=== PATIENT | female | born 1995 | race Two or more races ===

== ENCOUNTER 2024-11-22 09:52 | Emergency (ER) | payer SELFPAY ==
[~2024-11-22] VITALS: Ht 167.6 cm; Wt 91.3 kg
--- NOTE | 2024-11-22 10:49 | DVH ---
CLINICAL INFORMATION: 29 years old, Female; shortness of breath. TECHNIQUE: Frontal and lateral chest radiographs were obtained. COMPARISON: None FINDINGS: Lungs: Clear. Cardiac: Heart size is within normal limits. Pulmonary vasculature: Unremarkable Mediastinum/paulo: Within normal limits. Bones: No evidence of acute osseous abnormality. Other: No other significant finding. IMPRESSION: No evidence of acute disease in the chest.
[2024-11-22 11:18] VITALS: BP 140/77; PULSE 114; RESP 18; TEMP 98.4; O2SAT 96
[2024-11-22] MEDS ORDERED: AMOX500C2 PO (11:35)
--- NOTE | 2024-11-22 11:36 | ED.PDOC ---
History of Present Illness Chief Complaint: Cough Time Seen by MD: 10:30 Allergies: Coded Allergies: NO KNOWN ALLERGIES (Unverified , 11/22/24) Home Meds Active Scripts Amoxicillin Trihydrate (Amoxicillin) 500 Mg Cap, 1 CAP PO TID for 7 Days, #21 CAP Prov:SHAR HASTINGS MD 11/22/24 Mode of Arrival: Ambulatory Physical Exam General Appearance: Moderate Distress HEENT: Normal ENT Inspection, Pharynx Normal, TMs Normal Neck: Full Range of Motion, Non-Tender, Normal, Normal Inspection Respiratory: Chest Non-Tender, Lungs Clear, No Accessory Muscle Use, No Respiratory Distress, Normal Breath Sounds Cardiovascular: No Edema, No JVD, No Murmur, No Gallop, Normal Peripheral Pulses, Regular Rate/Rhythm Breast Exam: Deferred Gastrointestinal: No Organomegaly, Non Tender, No Pulsatile Mass, Normal Bowel Sounds, Soft Genitalia: Deferred Pelvic: Deferred Rectal: Deferred Extremities: No calf tenderness, Normal capillary refill, Normal inspection, Normal range of motion, Non-tender, No pedal edema Musculoskeletal : Apperance: Normal Neurologic: Alert, criminal intelligence analyst II-XII nml as Tested, No Motor Deficits, Normal Affect, Normal Mood, No Sensory Deficits Cerebellar Function: Normal Reflexes: Normal Skin: Dry, Normal Color, Warm Peripheral Pulses: 3+ Radial (R), 3+ Radial (L) Lymphatic: No Adenopathy Was a procedure done? Was a procedure done?: No Differential Dx Considerations may include: Bronchitis Electrolyte imbalance X-Ray, Labs, Meds, VS Vital Signs Date Time Temp Pulse Resp B/P (MAP) Pulse Ox O2 Delivery O2 Flow Rate FiO2 11/22/24 11:18 114 18 96 Room Air 11/22/24 11:18 98.4 114 18 140/77 (98) 96 98.4 11/22/24 10:18 18 96 Room Air* 0 21 11/22/24 10:18 98.4 114 18 140/77 (98) 96 11/22/24 10:09 91 Patient alert. Complaining of cough. Denies chest pain. Denies shortness a breath. Saturation pristine on room air. Respiratory rate within normal limits pain No leg swelling. On re-evaluation heart rate within normal limits pain Does not meet any criteria. Comfortable. X-ray reviewed does not show any acute process no right ventricular strain. Given prescription of amoxicillin antibiotic. Was told to follow up with her primary care physician. Was told to come back if there is any problem. Time of 1ST Reevaluation: 11:33 Reevaluation 1ST: Unchanged Patient Education/Counseling: Diagnosis, Treatment, Prognosis, Need For Follow Up Family Education/Counseling: No Family Present Departure 1 Departure Time of Disposition: 11:34 Impression: Primary Impression: Bronchitis Disposition: 01 HOME / SELF CARE / HOMELESS Condition: Good e-Prescriptions Amoxicillin Trihydrate (Amoxicillin) 500 Mg Cap 1 CAP PO TID for 7 Days, #21 CAP Prov: SHAR HASTINGS MD 11/22/24 Discharged With: Self Critical Care Note Critical Care Time?: No Stability Stability form required: No Heart Score Heart Score: Heart Score Response (Comments) Value History N/A 0 EKG N/A 0 Age N/A 0 Risk Factors N/A 0 Troponin N/A 0 Total 0 SHAR HASTINGS MD Nov 22, 2024 11:36
--- NOTE | 2024-11-23 12:41 | ECG ---
[facility] Test Date: 2024-11-22 Test Time: 10:04:00 Pat Name: CHATA HORAN Department: ER Room: Gender: F Appeals Specialist: VIC : 1995 Requested By: SHAR HASTINGS Order Number: [id number] Reading MD: Adis Chu Measurements Intervals [place] Rate: 91 P: 0 [place]: 0 QRS: 57 QRSD: 104 T: 38 QT: 343 QTc: 423 Interpretive Statements Atrial fibrillation Electronically Signed On 11-24-2024 13:10:09 PST by Adis Chu Please click the below link to view image of tracing.
== END 2024-11-22 11:32 | disposition home or self-care (01) ==
LOC: ER 09:52
DX: J40 Bronchitis, not specified as acute or chronic (principal); I48.91 Unspecified atrial fibrillation
CPT/HCPCS: 71046; 93005

== ENCOUNTER 2025-01-02 06:24 | Emergency (ER) | payer MEDICAID, OTHER ==
[~2025-01-02] VITALS: Ht 167.6 cm; Wt 93.9 kg
[~2025-01-02 06:24] MED LIST: AMOX500C2 PO
[2025-01-02 07:27] VITALS: BP 127/70; PULSE 82; RESP 20; TEMP 98.2; O2SAT 94
--- NOTE | 2025-01-02 08:11 | DVH ---
EXAMINATION: XY R RIB XRAY INDICATION: R rib pain COMPARISON: None TECHNIQUE: Frontal view of the chest and 2 views of the right ribs FINDINGS: No focal consolidation, pleural effusion or significant pneumothorax. Normal cardiomediastinal silhou ette. No displaced right rib fracture. IMPRESSION: No acute cardiopulmonary disease. No displaced right rib fracture.
[2025-01-02] MEDS ORDERED: LIDO5DIS21 TOP (08:28)
--- NOTE | 2025-01-02 08:31 | ED.PDOC ---
SOB-HPI HPI Comments This is a pleasant 29-year-old female with a recent diagnosis of URI and b ronchitis that presents with a chief complaint of atraumatic nonradiating right- sided rib pain x1 month. After patient was diagnosed with bronchitis she began to endorse a productive cough that then developed a unilateral right-sided rib pain that is usually aggravated with lateral movements. Has not taken medications for the symptoms listed above. Denies any shortness of breath on exertion. Denies chest pain. Denies fevers chills night sweats unintentional weight loss Denies persistent chest pain, shortness of breath, leg swelling Denies history of asthma nor any breathing conditions Denies history of pneumonia Denies recent international travel Chief Complaint: Rib Pain Time Seen by MD: 06:59 Reviewed notes: Nurses Notes, Medications, Allergies Information Source: Patient Mode of Arrival: Ambulatory All Other Systems: Reviewed and Negative (per hpi) Physical Exam General Appearance: No Apparent Distress, Normal HEENT: Normal ENT Inspection, Pharynx Normal, TMs Normal Neck: Full Range of Motion, Non-Tender, Normal, Normal Inspection Respiratory: Chest Non-Tender, Lungs Clear, No Accessory Muscle Use, No Respiratory Distress, Normal Breath Sounds Cardiovascular: No Edema, No JVD, No Murmur, No Gallop, Normal Peripheral Pulses, Regular Rate/Rhythm Breast Exam: Deferred Gastrointestinal: No Organomegaly, Non Tender, No Pulsatile Mass, Normal Bowel Sounds, Soft Genitalia: Deferred Pelvic: Deferred Rectal: Deferred Extremities: No calf tenderness, Normal capillary refill, Normal inspection, Normal range of motion, Non-tender, No pedal edema Musculoskeletal : Apperance: Normal Neurologic: Alert, review nurse II-XII nml as Tested, No Motor Deficits, Normal Affect, Normal Mood, No Sensory Deficits Cerebellar Function: Normal Reflexes: Normal Skin: Dry, Normal Color, Warm Lymphatic: No Adenopathy Was a procedure done? Was a procedure done?: No Differential Dx Differential Diagnosis: Asthma, Bronchitis, Pneumonia, Pneumothorax, URI X-Ray, Labs, Meds, VS Vital Signs Date Time Temp Pulse Resp B/P (MAP) Pulse Ox O2 Delivery O2 Flow Rate FiO2 01/02/25 07:27 98.2 82 20 127/70 (89) 94 98.2 01/02/25 07:27 82 20 94 Room Air 01/02/25 07:02 98.2 82 20 127/70 (89) 94 X-Ray, Labs, Meds, VS Comment Presents with a chief complaint of atraumatic. Pain after being diagnosed with a URI. Differentials considered but not limited to pneumothorax, blunt injury, pneumonia, rib fracture Imaging ordered and reviewed by me. My wet mount read shows no acute findings. Pending final read by radiologist. Patient will be discharged home as she is young healthy and has no complicated MHx. Patient received Toradol injection prior to discharge. Advised to follow up with primary care precautions were discussed On reevaluation, patient had symptomatic improvement. Patient is stable for discharge at this time. External notes reviewed. Test results and diagnostic imaging interpreted. All diagnostic findings, discharge care, education and instructions provided Follow-up with PCP in 2 to 3 days Patient verbalized understanding and agreed to treatment plan Vital signs stable, afebrile, no acute distress noted Patient ambulatory with strong steady gait Advised to return precautions for any new or worsening symptoms, return to ER immediately for re-evaluation Patient is aware that the purpose of this visit was for an acute medical emergency requiring emergent stabilization. Chronic conditions, including malignancies have not been ruled out. Patient is instructed to follow up with PCP as directed and discharge instructions for continued care and workup. If unable to arrange follow-up, patient is to return to the emergency department for reassessment. Patient (parent or legal guardian if applicable) was given verbal and written discharge instructions and acknowledges understanding. Time of 1ST Reevaluation: 08:25 Reevaluation 1ST: Improved Patient Education/Counseling: Diagnosis, Treatment Family Education/Counseling: Diagnosis, Treatment Departure 1 Departure Time of Disposition: 08:27 Impression: Primary Impression: Rib pain on right side Disposition: 01 HOME / SELF CARE / HOMELESS Condition: Stable e-Prescriptions Lidocaine (LIDODERM 5% TOPICAL PATCH) 1 Patch Ph 1 PATCH TOP DAILY for 30 Days, #30 PATCH 0 Refills Prov: SLOANE RODRIGUEZ NP 01/02/25 Discharged With: Self Critical Care Note Critical Care Time?: No Stability Stability form required: No Heart Score Heart Score: Heart Score Response (Comments) Value History N/A 0 EKG N/A 0 Age N/A 0 Risk Factors N/A 0 Troponin N/A 0 Total 0 SLOANE RODRIGUEZ NP Jan 02, 2025 08:31
[2025-01-02] MEDS: KETOROLAC TROMETH 30 MG/ML 1ML VIAL IM ONE (08:47)
== END 2025-01-02 08:54 | disposition home or self-care (01) ==
LOC: ER 06:24
DX: R07.81 Pleurodynia (principal); R05.9 Cough, unspecified
CPT/HCPCS: 71101; 96372; 99283; J1885